=== PATIENT | male | born 1995 | race Caucasian/White ===

== ENCOUNTER 2017-03-21 17:27 | Emergency (ER) | payer BC, OTHER ==
[2017-03-21 17:33] VITALS: TEMP 98.1; O2SAT 96
--- NOTE | 2017-03-21 17:33 | EDPHY ---
H & P Stated Complaint: sharp stabbing pain luq abd/making him feel lightheaded Time Seen by Provider: 03/21/17 17:33 - Personal History Current Tetanus/Diphtheria Vaccine: Unsure - Medical/Surgical History Hx Asthma: No Hx Chronic Respiratory Disease: No Hx Diabetes: No Hx Cardiac Disease: No Hx Renal Disease: No Hx Cirrhosis: No Hx Alcoholism: No Hx HIV/AIDS: No Hx Splenectomy or Spleen Trauma: No Other PMH: denies - Social History Smoking Status: Current every day smoker Constitutional: Initial Vital Signs Temperature (C) 36.7 C 03/21/17 17:30 Heart Rate 84 03/21/17 17:30 Respiratory Rate 18 03/21/17 17:30 Blood Pressure 131/72 H 03/21/17 17:30 O2 Sat (%) 96 03/21/17 17:30 O2 Delivery Mode Room Air Allergies/Adverse Reactions: No Known Allergies Allergy (Unverified 03/21/17 17:30) Home Medications: Medication Instructions Recorded NK [No Known Home Meds] 03/21/17 Medical Decision Making - Diagnostics Imaging: Discussed imaging studies w/ order desk caller Radiologist ED Course/Re-evaluation: CHIEF COMPLAINT: Left-side abdominal pain, lightheadedness HISTORY OF PRESENT ILLNESS: This patient is a 21 year old male complaining of sudden onset sharp pain in his left side this evening at work. He states the pain is localized to the area just below his ribs on the left. He states he developed lightheadedness shortly after. He denies fever, chills, nausea, vomiting, or other associated symptoms. REVIEW OF SYSTEMS: A 10 point review of systems was performed and is negative with the exception of the elements mentioned in the history of present illness. PHYSICAL EXAM: HR, BP, O2 Sat, RR. Temp noted General Appearance: Alert, well hydrated, appropriate, and non-toxic appearing. Head: Atraumatic without scalp tenderness or obvious injury Eyes: Pupils equal, round, reactive to light and accommodation, EOMI, no trauma , no injection.. Throat: Mucus membranes moist. Neck: Supple, nontender. Respiratory: No retractions, no distress, no wheezes, and no accessory muscle use. Lungs are clear to auscultation bilaterally. Cardiovascular: Regular rate and rhythm. Good capillary refill all extremities. Gastrointestinal: Tenderness to left upper quadrant. Abdomen is soft, non- distended, no masses, no rebound, no guarding, no peritoneal signs. Musculoskeletal: Normal active ROM of all extremities, atraumatic. Neurological: Alert, appropriate, and interactive. Nonfocal neuro exam. Skin: Keratosis pilaris. Good turgor, no nodules on palpation. Past medical history: Denies. Past surgical history: Noncontributory Family history: Noncontributory Social history: Current smoker. Works at [employer]. DIFFERENTIAL DIAGNOSIS: The differential diagnosis for the patient's abdominal pain included but was not limited to appendicitis, cholecystitis, hernias, testicular torsion, gastritis, and urinary tract infection. MEDICAL DECISION MAKING: This patient is a 21 year old male presenting with sudden onset left upper quadrant pain. Physical exam reveals left upper quadrant tenderness but it otherwise unremarkable. Plan for labs including CBC, BMP, liver, lipase. Plan for abdominal CT to assess for acute processes. 19:[address] Rodgers, radiologist. CT abdomen negative for acute processes. Reassessed patient. Father present at bedside. Discussed imaging results. Plan to discharge home in good condition with [pain medication] prepack. Return precautions discussed. The patient is comfortable with this plan. - Data Points Laboratory Results: Laboratory Results 03/21/17 17:40 03/21/17 17:40 03/21/17 03/21/17 17:40 17:40 WBC 5.87 10^3/uL 10^3/uL (3.80-9.50) RBC 5.28 10^6/uL 10^6/uL (4.40-6.38) Hgb 15.9 g/dL g/dL (13.7-17.5) Hct 47.4 % % (40.0-51.0) MCV 89.8 fL fL (81.5-99.8) MCH 30.1 pg pg (27.9-34.1) MCHC 33.5 g/dL g/dL (32.4-36.7) RDW 12.9 % % (11.5-15.2) Plt Count 238 10^3/uL 10^3/uL (150-400) MPV 10.3 fL fL (8.7-11.7) Neut % (Auto) 49.8 % % (39.3-74.2) Lymph % (Auto) 39.7 % % (15.0-45.0) [place] % (Auto) 8.0 % % (4.5-13.0) Eos % (Auto) 1.5 % % (0.6-7.6) Baso % (Auto) 0.7 % % (0.3-1.7) Nucleat RBC Rel Count 0.0 % % (0.0-0.2) Absolute Neuts (auto) 2.92 10^3/uL 10^3/uL (1.70-6.50) Absolute Lymphs (auto) 2.33 10^3/uL 10^3/uL (1.00-3.00) Absolute Monos (auto) 0.47 10^3/uL 10^3/uL (0.30-0.80) Absolute Eos (auto) 0.09 10^3/uL 10^3/uL (0.03-0.40) Absolute Basos (auto) 0.04 10^3/uL 10^3/uL (0.02-0.10) Absolute Nucleated RBC 0.00 10^3/uL 10^3/uL (0-0.01) Immature Gran % 0.3 % % (0.0-1.1) Immature Gran # 0.02 10^3/uL 10^3/uL (0.00-0.10) Sodium 143 mEq/L mEq/L (134-144) Potassium 3.8 mEq/L mEq/L (3.5-5.2) Chloride 102 mEq/L mEq/L (97-110) Carbon Dioxide 23 mEq/l mEq/l (22-31) Anion Gap 18 mEq/L H mEq/L (8-16) BUN 18 mg/dL mg/dL (7-23) Creatinine 0.9 mg/dL mg/dL (0.7-1.3) Estimated GFR > 60 Glucose 107 mg/dL H mg/dL (70-100) Calcium 10.3 mg/dL mg/dL (8.5-10.4) Total Bilirubin 2.6 mg/dL H mg/dL (0.1-1.4) Conjugated Bilirubin 0.2 mg/dL mg/dL (0.0-0.5) Unconjugated Bilirubin 2.4 mg/dL H mg/dL (0.0-1.1) AST 25 IU/L IU/L (17-59) ALT 29 IU/L IU/L (21-72) Alkaline Phosphatase 64 IU/L IU/L (38-126) Total Protein 8.2 g/dL g/dL (6.3-8.2) Albumin 5.2 g/dL H g/dL (3.5-5.0) Lipase 84.0 IU/L IU/L (23-300) Departure - Departure Disposition: Home, Routine, Self-Care Clinical Impression: Abdominal pain Qualifiers: Abdominal location: left upper quadrant Qualified Code(s): R10.12 - Left upper quadrant pain Condition: Good Instructions: Oxycodone/Acetaminophen (By mouth), Acute Abdominal Pain (ED) Additional Instructions: 1. Follow up with your primary care provider for symptoms unresolved. We have referred you to our primary care provider risk control director, but you may follow up with your regular provider if you like. 2. Return to the Emergency Department if you develop fever, chills, vomiting, or other worsening of condition. Referrals: Nic Kerr DO [Doctor of Osteopathy] - As per Instructions Stand Alone Forms: Narcotic Guidelines Report Scribed for: Fabrizio Garcia Report Scribed by: Annabelle Paredes Date of Report: 03/21/17 Time of Report: 18:32
[2017-03-21 17:58] LABS: % IMMATURE GRANULYOCYTES 0.3 % (0.0-1.1); ABSOLUTE IMMATURE GRANULOCYTES 0.02 10^3/uL (0.00-0.10); ADD DIFF? NO; ADD MORPH? NO; ADD SCAN? NO; ATYPICAL LYMPHOCYTE FLAG 40 (0-99); FRAGMENT RBC FLAG 0 (0-99); HEMATOCRIT 47.4 % (40.0-51.0); HEMOGLOBIN 15.9 g/dL (13.7-17.5); LEFT SHIFT FLG 0 (0-99); LIPEMIA HEMOLYSIS FLAG 80 (0-99); MEAN CELL HEMOGLOBIN 30.1 pg (27.9-34.1); MEAN CELL HEMOGLOBIN CONCENTR. 33.5 g/dL (32.4-36.7); MEAN CELL VOLUME 89.8 fL (81.5-99.8); MEAN PLATELET VOLUME 10.3 fL (8.7-11.7); PLATELET CLUMPS FLAG 10 (0-99); PLATELET COUNT 238 10^3/uL (150-400); RED BLOOD CELL COUNT 5.28 10^6/uL (4.40-6.38); RED CELL DISTRIBUTION WIDTH 12.9 % (11.5-15.2)
[2017-03-21 18:06] LABS: ALANINE AMINOTRANSFERASE 29 IU/L (21-72); ALBUMIN 5.2 g/dL (3.5-5.0); ALKALINE PHOSPHATASE 64 IU/L (38-126); ANION GAP 18 mEq/L (8-16); ASPARTATE AMINOTRANSFERASE 25 IU/L (17-59); BILIRUBIN,TOTAL 2.6 mg/dL (0.1-1.4); BILIRUBIN-CONJUGATED 0.2 mg/dL (0.0-0.5); BILIRUBIN-UNCONJUGATED 2.4 mg/dL (0.0-1.1); CALCIUM 10.3 mg/dL (8.5-10.4); CARBON DIOXIDE 23 mEq/l (22-31); CHLORIDE 102 mEq/L (97-110); CREATININE 0.9 mg/dL (0.7-1.3); GLOMERULAR FILTRATION RATE > 60; GLUCOSE 107 mg/dL (70-100); POTASSIUM 3.8 mEq/L (3.5-5.2); SODIUM 143 mEq/L (134-144); TOTAL PROTEIN 8.2 g/dL (6.3-8.2)
[2017-03-21] MEDS ORDERED: IOPAMIDOL (ISOVUE-300) 100 ML BTL ONE (18:33)
[2017-03-21] MEDS ORDERED: OXYCODONE/APAP 5/325MG PREPACK#4 BTL TAKEHOME ONE (19:02)
[2017-03-21 19:15] VITALS: BP 117/58; PULSE 61; RESP 16
== END 2017-03-21 19:15 | disposition home or self-care (01) ==
DX: R10.12 Left upper quadrant pain (principal); F17.200 Nicotine dependence, unspecified, uncomplicated
CPT/HCPCS: Q9967